=== PATIENT | female | born 1950 | race Caucasian/White ===

== ENCOUNTER 2023-12-29 16:25 | Emergency (ER) | payer OTHER, MEDICAID ==
[~2023-12-29] VITALS: Ht 160 cm; Wt 797.0 kg
[2023-12-29 16:27] VITALS: O2SAT 100
[2023-12-29 17:10] LABS: CHLORIDE 105 mEq/L (98-107); POTASSIUM 3.6 mEq/L (3.5-5.1); SODIUM 142 mEq/L (136-145)
[2023-12-29 17:11] LABS: CARBON DIOXIDE 27 mEq/L (21-32)
[2023-12-29 17:12] LABS: BASOPHILS % 0.6 % (0.0-2.0); CALCIUM 9.9 mg/dL (8.7-10.4); EOSINOPHILS % 2.5 % (0.0-5.0); HEMATOCRIT. 39.5 % (36.0-48.0); HEMOGLOBIN. 13.5 g/dL (12.0-16.0); LYMPHOCYTES % 11.3 % (20.0-50.0); MEAN CORPUSCULAR HEMOGLOBIN 32.1 pg (28.0-32.0); MEAN CORPUSCULAR HGB CONC 34.1 g/dL (31.0-37.0); MEAN CORPUSCULAR VOLUME 94.1 fL (81.0-99.0); MEAN PLATELET VOLUME 7.3 fl (7.4-10.4); MONOCYTES % 5.7 % (2.0-8.0); NEUTROPHILS % 79.9 % (40.0-76.0); PLATELET 117 x1000/uL (130-400); RED CELL DISTRIBUTION WIDTH 14.4 % (11.6-14.6)
[2023-12-29 17:16] LABS: CREATININE 0.7 mg/dL (0.6-1.0); GLUCOSE 68 mg/dL (70-105)
[2023-12-29] MEDS: DEXTROSE 50% WATER 50ML SYRINGE IV ONE (17:16)
[2023-12-29] MEDS: ASPIRIN 325MG EC TABLET PO ONE (17:16)
[2023-12-29 17:17] LABS: TROPONIN I HIGH SENSITIVITY 6 ng/L (3.0-34); UREA NITROGEN BLOOD 9 mg/dL (9-23)
[2023-12-29 18:30] VITALS: TEMP 36.66960
[2023-12-29] MEDS: DEXT 5%/0.45% NACL 1000ML 1,000 ML IV ONE (18:48)
[2023-12-29 19:45] LABS: TROPONIN I HIGH SENSITIVITY 6 ng/L (3.0-34)
[2023-12-29] MEDS: MORPHINE SULFATE 2 MG/ML INJ (NOT FOR IM USE) IV ONE (21:43)
[2023-12-29] MEDS: ONDANSETRON HCL 4MG/2ML INJ IV ONE (21:43)
[2023-12-29 22:00] VITALS: BP 125/8; PULSE 80; RESP 18; O2SAT 100
== END 2023-12-29 22:58 | disposition short-term general hospital (02) ==
LOC: ER 16:25
DX: E11.649 Type 2 diabetes mellitus with hypoglycemia without coma (principal)
CPT/HCPCS: 99285; 96365; 96366; 71045; 96375; 80048; 82962; 83880; 85025; 84484; 36415; 93005; J2405; J2270